=== PATIENT | male | born 1980 | race Two or more races ===

== ENCOUNTER → 2020-02-26 | Outpatient (CLI) | payer SELFPAY | LOC: M LABSMTC 11:12 | PROVIDERS: ATTEND Pediatrics | DX: Z20.822 Contact with and (suspected) exposure to COVID-19 (principal) ==

== ENCOUNTER 2020-12-21 10:57 | Emergency (ER) | payer SELFPAY ==
[~2020-12-21] VITALS: Ht 172.7 cm; Wt 90.9 kg
--- NOTE | 2020-12-21 11:29 | REP ---
INDICATION: pain after a fall. COMPARISON: None. TECHNIQUE: Four views of the left ankle were obtained. 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 There is a ossific fragment below the lateral malleolus, consistent with a calcaneal avulsion fracture of indeterminate age. There is soft tissue swelling about the ankle. There is no significant arthropathy. IMPRESSION: Avulsion fracture of the lateral aspect of the calcaneus of indeterminate age. There is soft tissue swelling about the ankle. <Electronically signed by Solis Quiñonez > 12/21/20 [id number]
[2020-12-21] MEDS ORDERED: ACETAMINOPH W/CODEINE #3 TAB UD PO ONE (13:15)
--- NOTE | 2020-12-21 13:34 | REP ---
INDICATION: fall down 8 stairs. COMPARISON: None. TECHNIQUE: Two views of the right calcaneus were obtained. FINDINGS: No evidence of fracture. There is no arthropathy. There are no plantar spurs. There are no abnormal soft tissue calcifications or radiopaque foreign bodies. IMPRESSION: Normal calcaneus. <Electronically signed by Solis Quiñonez > 12/21/20 [id number]
--- NOTE | 2020-12-21 13:36 | REP ---
INDICATION: fall down 8 stairs. COMPARISON: None. TECHNIQUE: Four views of the left foot were obtained. FINDINGS: There is no evidence of fracture or dislocation. There is no significant arthropathy. There are no soft tissue abnormalities. There is no plantar spur. IMPRESSION: Normal left foot. <Electronically signed by Solis Quiñonez > 12/21/20 [id number]
--- NOTE | 2020-12-21 13:37 | REP ---
INDICATION: fall down 8 stairs. COMPARISON: None. TECHNIQUE: Frontal and lateral views of the left tibia and fibula on 4 images were obtained. FINDINGS: There is soft tissue swelling about the ankle. There is an old ununited avulsion fracture of the medial malleolus. The ankle and knee joints are unremarkable. IMPRESSION: Soft tissue swelling about the ankle. <Electronically signed by Solis Quiñonez > 12/21/20 [id number]
[2020-12-21 14:09] VITALS: BP 157/83
== END 2020-12-21 14:13 | disposition home or self-care (01) ==
LOC: M ED 10:57
DX: S92.032A Displaced avulsion fracture of tuberosity of left calcaneus, initial encounter for closed fracture (principal); W10.9XXA Fall (on) (from) unspecified stairs and steps, initial encounter; Y92.009 Unspecified place in unspecified non-institutional (private) residence as the place of occurrence of the external cause; Y93.9 Activity, unspecified; Y99.9 Unspecified external cause status; F17.210 Nicotine dependence, cigarettes, uncomplicated

== ENCOUNTER 2020-12-26 20:56 | Emergency (ER) | payer SELFPAY ==
[~2020-12-26] VITALS: Ht 172.7 cm; Wt 87.2 kg
[2020-12-27 04:29] LABS: BASO % 0.4 % (0.0-1.0); EOS # 0.1 10^3/uL (0.0-0.5); EOS % 0.7 % (0.0-3.0); HEMATOCRIT 49.1 % (42.0-52.0); HEMOGLOBIN 16.1 g/dl (13.5-17.5); LYMPH # 2.5 10^3/uL (1.5-5.0); LYMPH % 26.8 % (24.0-44.0); MEAN CORPUSCULAR HEMOGLOBIN 29.9 pg (27.0-33.0); MEAN CORPUSCULAR HGB CONC 32.8 g/dl (32.0-36.5); MEAN CORPUSCULAR VOLUME 91.1 fl (80.0-96.0); MONO # 0.8 10^3/uL (0.0-0.8); MONO % 8.4 % (2.0-8.0); NEUTROPHILS # 5.8 10^3/uL (1.5-8.5); NEUTROPHILS % 63.4 % (36.0-66.0); PLATELET COUNT, AUTOMATED 156 10^3/uL (150-450); RED BLOOD COUNT 5.39 10^6/uL (4.30-6.10); WHITE BLOOD COUNT 9.2 10^3/uL (4.0-10.0)
[2020-12-27 04:52] LABS: ALBUMIN 4.1 GM/DL (3.2-5.2); ALT/SGPT 51 U/L (12-78); BILIRUBIN,TOTAL 0.7 MG/DL (0.2-1.0); BLOOD UREA NITROGEN 16 MG/DL (7-18); CALCIUM LEVEL 9.5 MG/DL (8.5-10.1); CARBON DIOXIDE LEVEL 25 MEQ/L (21-32); CHLORIDE LEVEL 104 MEQ/L (98-107); CREATININE FOR GFR 0.91 MG/DL (0.70-1.30); GLOMERULAR FILTRATION RATE > 60.0 (>60); GLUCOSE, FASTING 85 MG/DL (70-100); SODIUM LEVEL 139 MEQ/L (136-145); TOTAL PROTEIN 7.9 GM/DL (6.4-8.2)
[2020-12-27 06:36] VITALS: BP 137/88
== END 2020-12-27 08:37 | disposition home or self-care (01) ==
LOC: M ED 20:56
DX: K62.5 Hemorrhage of anus and rectum (principal); S92.002A Unspecified fracture of left calcaneus, initial encounter for closed fracture; X58.XXXA Exposure to other specified factors, initial encounter; Y92.89 Other specified places as the place of occurrence of the external cause; Y93.89 Activity, other specified; Y99.8 Other external cause status; I10 Essential (primary) hypertension; F17.210 Nicotine dependence, cigarettes, uncomplicated